=== PATIENT | female | born 1950 | race Caucasian/White ===

== ENCOUNTER 2021-11-10 17:31 | Inpatient (IN) | payer MEDICARE, OTHER ==
--- OUTSIDE RECORDS SUMMARY | 2021-11-10 17:33 | XMS REPORT | Continuity of Care Document ---
:1950 Author Organization [facility] t Address [address] [place] [address] Care Team Providers Name Role Phone Kayla COSME Primary Care Physician Unavailable Elise WARREN, Hanh Attending Clinician Hanh HAYS Attending Clinician Unavailable ELISE B Admitting Clinician Unavailable Payers Payer Name Policy Type Policy Number Effective Date Expiration Date S ource Problems This patient has no known problems. Allergies, Adverse Reactions, Alerts Allergy Allergy Status Severity Reaction(s) Onset Inactive Treating Comm ents Source Name Type Date Date Clinician Erythrom Propensi Active Anaphylaxis U nivers ycin ty to 3-02 ity of adverse 00:00: [place] reaction 00 Medical s Branch Sulfa Propensi Active Anaphylaxis Uni vers (Sulfona ty to 3-02 ity of mide adverse 00:00: [place] Antibiot reaction 00 Medica l ics) s Branch Tetanus Propensi Active Anaphylaxis Un harriet And ty to 3-02 ity of Diphther adverse 00:00: [place] . Tox reaction 00 Medical (Pf) s Branch SULFA Drug Active Anaphylaxis 0 Unive rs (SULFONA Class 3-02 ity of MIDE 00:00: [place] ANTIBIOT 00 Medical ICS) Branch ERYTHROM DRUG Active Anaphylaxis Uni vers YCIN 3-02 ity of 00:00: [place] 00 Medical Branch TETANUS DRUG Active Anaphylaxis 2021-0 Univ ers AND 3-02 ity of DIPHTHER 00:00: [place] . TOX 00 Medical (PF) Branch NO KNOWN Drug Active Univers ALLERGIE Class ity of S [facility] Social History Social Habit Start Date Stop Date Quantity Comments Source Exposure to Not sure [facility] SARS-CoV-2 (event) Medica l Branch Sex Ass[birth year] [facility] 00:00:00 00:00:00 Medical Branch Smoking Status Start Date Stop Date Source Unknown if ever smoked [facility] Medications This patient has no known medications. Vital Signs Vital Name Observation Time Observation Value Comments Source Systolic blood 2021-08-17 21:34:00 149 mm[facility]Hg[facility] Diastolic [facility] 2021-08-17 21:34:00 96 mm[Hg[facility] 2021-08-17 21:34:00 114 /min [facility] Respiratory rate 2021-08-17 21:34:00 18 /min [facility] Oxygen saturation in 2021-08-17 21:34:00 97 /min [facility] Arterial blood by [facility] Pulse oximetry Branch Body temperature 2021-08-17 21:29:00 36.56 Cherie [facility] Body height 2021-08-17 21:29:00 172.7 cm [facility] Body weight 2021-08-17 21:29:00 72.576 kg [facility] BMI 2021-08-17 21:29:00 24.33 kg/m2 [facility] Procedures Procedure Date / Time Performed Performing Clinician Pam e XR FOREARM 2 VW LEFT 2021-08-17 22:22:00 Rubio Hays [facility] XR HAND 3+ VW LEFT 2021-08-17 22:22:00 Rubio Hays [facility] XR WRIST 3+ VW LEFT 2021-08-17 22:22:00 Rubio [facility] CONSENT/REFUSAL FOR 2021-08-17 21:08:23 Doctor Unassigned, No Un [facility] DIAGNOSIS AND Name [facility] Branch TREATMENT Encounters Start End Encounter Admission Attending Care Care Encounter Source Date/Time Date/Time Type Type Clinicians Facility Department ID 2021-08-17 2021-08-17 Emergency NADJA [place] [id number] [facility] 15:31:00 17:14:00 Rubio MURPHY [id number] i ty of ANGELITA [id number] [facility] [id number] [place] [id number] Branch 2021-08-17 2021-08-17 Emergency X ELISE [facility] ERT [id number] [facility] 15:31:00 17:14:00 RUBIO ng of [facility] Results This patient has no known results.
[2021-11-10 17:54] LABS: Absolute Lymphocytes (CBC) 1.5 K/uL (0.7-4.9); Hematocrit 45.2 % (36.0-45.0); Lymphocytes % 10.1 % (15.3-44.8); MPV 8.2 fL (7.6-11.3); RBC Red Blood Cell Count 4.26 M/uL (3.86-4.86)
[2021-11-10 18:14] LABS: Troponin High Sensitivity 14.1 pg/mL (<58.9)
[2021-11-10 18:19] LABS: Potassium 2.8 mmol/L (3.5-5.1)
[2021-11-10] MEDS ORDERED: NA CHLORIDE 0.9% 500 ML ONE (18:20)
[2021-11-10] MEDS ORDERED: NA CHLORIDE 0.9% 50 ML ONE (18:20)
--- NOTE | 2021-11-10 18:22 | RAD REPORT ---
EXAM DESCRIPTION: [facility]anner Single View11/10/2021 5:48 pm CLINICAL HISTORY: Alteration of consciousness COMPARISON: 2021 FINDINGS: The lungs appear clear of acute infiltrate. The heart is normal size IMPRESSION: No acute abnormalities displayed
--- NOTE | 2021-11-10 18:36 | RAD REPORT ---
EXAM DESCRIPTION: CT - Head Brain Wo Cont - 11/10/2021 6:29 pm CLINICAL HISTORY: Alteration of consciousness/confusion COMPARISON: None. TECHNIQUE: Computed axial tomography of the head was obtained. IV contrast was not requested. All CT scans are performed using dose optimization technique as appropriate and may include automated exposure control or mA/KV adjustment according to patient size. FINDINGS: An intracranial bleed is not seen . The ventricles are normal in caliber. No significant hypodense areas within the brain visualized Prominent cerebellar vermis and cerebral atrophy No extra-axial fluid collection is noted. Fluid within the sinuses/ mastoids is not seen. IMPRESSION: No acute intracranial abnormality is seen. If patient's symptoms persist MRI of the bra in would be recommended.
[2021-11-10] MEDS ORDERED: KCL 20 MEQ/100 mL IVPB 100 ML IV ONE ×2 (18:38→19:53)
[2021-11-10 19:16] LABS: Urine Blood Trace-intact (Negative); Urine Glucose Trace (Negative); Urine Protein 1+ (Negative)
--- NOTE | 2021-11-10 19:22 | ER ---
Nurse's Notes [facility] Name: Kassidy Bella Age: 71 yrs Sex: Female : 1950 Arrival Date: 11/10/2021 Time: 17:32 Bed 27 Private MD: Diagnosis: Altered mental status, unspecified;Hypokalemia;Hyponatremia;Dehydration;Hypotension, unspecified;UTI/ Urinary tract infection, site not specified Presentation: 11/10 17:35 Chief complaint: Patient states: she has low blood pressure today. patient is unable to ap3 tell us exactly what is wrong and how she is currently feeling. Coronavirus screen: At this time, the client does not indicate any symptoms associated with coronavirus-19. Ebola Screen: No symptoms or risks identified at this time. Initial Sepsis Screen: Does the patient meet any 2 criteria? No. Patient's initial sepsis screen is negative. Does the patient have a suspected source of infection? No. Patient's initial sepsis screen is negative. Risk Assessment: Do you want to hurt yourself or someone else? Patient reports no desire to harm self or others. Onset of symptoms was November 10, 2021. 17:35 Method Of Arrival: EMS: [facility] ap3 17:35 Acuity: RIGOBERTO 3 ap3 Historical: - Allergies: 17:34 Sulfa (Sulfonamide Antibiotics); ap3 - Home Meds: 17:34 Lisinopril Oral [Active]; ap3 - PMHx: 17:34 Hypertensive disorder; ap3 - Immunization history:: Client reports having NOT received the Covid vaccine. - Social history:: Smoking status: Patient reports the use of cigarette tobacco products, smokes one-half pack cigarettes per day. Screenin:46 Abuse screen: Denies threats or abuse. Nutritional screening: No deficits noted. ap3 Tuberculosis screening: No symptoms or risk factors identified. Fall Risk Fall in past 12 months (25 points). Secondary diagnosis (15 points) impaired mobility, IV access (20 points). Ambulatory Aid- None/Bed Rest/Nurse Assist (0 pts). Gait- Weak (10 pts.). Mental Status- Oriented to own ability (0 pts). Total Osborn Fall Scale indicates High Risk Score (45 or more points). Fall prevention measures have been instituted. Side Rails Up X 2 Placed Close to Nursing Station Frequent Obs/Assessments Occuring Family Present and informed to notify staff if the need to leave the bedside As available patient and family educated on Fall Prevention Program and Strategies. Assessment: 17:46 General: Appears in no apparent distress. Behavior is calm, cooperative. Pain: Denies ap3 pain. Neuro: Level of Consciousness is awake, alert, Oriented to person, place, time, patient unable to articulate how she is feeling. Cardiovascular: Patient's skin is warm and dry. Respiratory: Airway is patent Respiratory effort is even, unlabored. 19:37 Reassessment: I recv'd report on the pt in room #16. She is now, an ER Hold. Her valeria daughter is at bedside. She is resting comfortably with IV infusing. One lab needs drawn, as it was ordered later. It will be sent jud. The pt is calm and cooperative. 20:23 Reassessment: Report given to the ER nurse that is taking all the ER Holds. The pt is valeria in NAD. Vital Signs: 17:35 BP 142 / 98; Pulse 101; Resp 18; Temp 97.8(O); Pulse Ox 98% on R/A; Weight 61.23 kg; ap3 Height 6 ft. (182.88 cm); 18:02 BP 94 / 65; Pulse 109; ap3 19:00 BP 94 / 71; Pulse 101; Pulse Ox 98% on R/A; ap3 19:36 BP 118 / 86; Pulse 92; Resp 20; Pulse Ox 95% on R/A; Pain 0/10; valeria 17:35 Body Mass Index 18.31 (61.23 kg, 182.88 cm) ap3 ED Course: 17:32 Patient arrived in ED. ap3 17:33 David Dawn MD is Attending Physician. jessica 17:33 Inserted saline lock: 20 gauge in left antecubital area, using aseptic technique. Blood ap3 collected. 17:45 Triage completed. ap3 17:47 Arm band placed on left wrist. ap3 17:47 Patient has correct armband on for positive identification. Bed in low position. Call ap3 light in reach. Side rails up X2. Adult w/ patient. laboratory monitor on. Pulse ox on. NIBP on. Door closed. Noise minimized. 17:49 Violet Riojas, CLIVE is Primary Nurse. ap3 17:49 AMMONIA Sent. ap3 17:49 Lactate Sent. ap3 17:50 XRAY Chest (1 view) In Process Unspecified. EDMS 18:06 Kalen Oliva PA is PHCP. jr8 18:30 CT Head Brain wo Cont In Process Unspecified. EDMS 18:54 ETOH Level Sent. ap3 19:00 EKG done, by ED staff, reviewed by Kalen NAVARRETE. ap3 19:01 Urine collected: Umaña catheter specimen, clear. Umaña cath inserted, using sterile [facility] technique, 18 Fr., by hi, balloon inflated, urine specimen collected. 19:02 Osmolality, Serum Sent. 5 19:02 Urine Sodium Random Sent. 5 19:02 Urine Osmolality Sent. 5 19:02 Urine Potassium Random Sent. 5 19:02 Urine Microscopic Only Sent. 5 19:03 Blood Culture Adult (2) Sent. 5 19:21 Albino Lebron MD is Hospitalizing Provider. jr8 19:39 No provider procedures requiring assistance completed. valeria 19:39 Patient admitted, IV remains in place. valeria Administered Medications: 18:38 Drug: Potassium Chloride 20 mEq Route: IV; Rate: calculated rate; Site: left ap3 antecubital; 18:39 Drug: NS 0.9% 500 ml Route: IV; Rate: bolus; Site: left antecubital; ap3 20:13 Drug: Potassium Chloride 40 mEq Route: PO; valeria 20:28 Drug: Potassium Chloride 20 mEq Route: IV; Rate: calculated rate; Site: left ll3 antecubital; Medication: 17:47 VIS not applicable for this client. ap3 Outcome: 19:22 Decision to Hospitalize by Provider. jr8 19:39 Condition: stable valeria 19:39 Admitted to ER Hold. [facility] for further documentation. valeria 11/11 13:10 Patient left the ED. ap3 Signatures: Dispatcher [employer] EDMS David Dawn MD MD cha Roszak, Josh, PA PA jr8 Rosita Duron [facility] Violet Riojas RN RN ap3 Tayla Stein RN RN shawn3 Mandie Manning RN RN valeria Corrections: (The following items were deleted from the chart) 11/10 17:36 17:34 Allergies: No Known Allergies; ap3 ap3 17:50 17:47 BLOOD CULTURE*+BA.LAB.SHAREE drawn and sent. ap3 EDMS 18:37 18:09 COVID 19 CPL+MR.LAB.SHAREE drawn and sent. ap3 EDMS
--- NOTE | 2021-11-10 19:23 | EDPHYS ---
Physician Documentation [facility] Name: Kassidy Bella Age: 71 yrs Sex: Female : 1950 Arrival Date: 11/10/2021 Time: 17:32 Bed 27 Private MD: ED Physician David Dawn HPI: 11/10 19:17 This 71 yrs old Female presents to ER via EMS with complaints of AMS, Blood Pressure jr8 Problem. 19:17 The patient presents with confusion. Onset: The symptoms/episode began/occurred jr8 acutely, today. Possible causes: unknown. Associated signs and symptoms: The patient has no apparent associated signs or symptoms, Pertinent positives:. Current symptoms: In the emergency department the patient's symptoms have improved, mildly. Patient's baseline: Neuro: alert and fully oriented, Motor: no deficits, Ambulation: walks without assistance, Speech: normal. The patient has not experienced similar symptoms in the past. It is unknown whether or not the patient has recently seen a physician. Family reports altered mentation. Stated that there was feces and urine all over the house. EMS called and found that patient was hypotensive . Historical: - Allergies: 17:34 Sulfa (Sulfonamide Antibiotics); ap3 - Home Meds: 17:34 Lisinopril Oral [Active]; ap3 - PMHx: 17:34 Hypertensive disorder; ap3 - Immunization history:: Client reports having NOT received the Covid vaccine. - Social history:: Smoking status: Patient reports the use of cigarette tobacco products, smokes one-half pack cigarettes per day. ROS: 19:17 ENT: Negative for injury, pain, and discharge, Neck: Negative for injury, pain, and jr8 swelling, Cardiovascular: Negative for chest pain, palpitations, and edema, Respiratory: Negative for shortness of breath, cough, wheezing, and pleuritic chest pain, Abdomen/GI: Negative for abdominal pain, nausea, vomiting, diarrhea, and constipation, Back: Negative for injury and pain, MS/Extremity: Negative for injury and deformity, Skin: Negative for injury, rash, and discoloration. 19:17 Neuro: Positive for altered mental status. 19:17 Constitutional: Negative for fever, chills, and weight loss. jr8 Exam: 19:17 Constitutional: This is a well developed, well nourished patient who is awake, alert, jr8 and in no acute distress. Eyes: Pupils equal round and reactive to light, extra-ocular motions intact. Lids and lashes normal. Conjunctiva and sclera are non-icteric and not injected. Cornea within normal limits. Periorbital areas with no swelling, redness, or edema. ENT: Nares patent. No nasal discharge, no septal abnormalities noted. Tympanic membranes are normal and external auditory canals are clear. Oropharynx with no redness, swelling, or masses, exudates, or evidence of obstruction, uvula midline. Mucous membranes moist. Neck: Trachea midline, no thyromegaly or masses palpated, and no cervical lymphadenopathy. Supple, full range of motion without nuchal rigidity, or vertebral point tenderness. No Meningismus. Cardiovascular: Regular rate and rhythm with a normal S1 and S2. No gallops, murmurs, or rubs. Normal PMI, no JVD. No pulse deficits. Respiratory: Lungs have equal breath sounds bilaterally, clear to auscultation and percussion. No rales, rhonchi or wheezes noted. No increased work of breathing, no retractions or nasal flaring. Abdomen/GI: Soft, non-tender, with normal bowel sounds. No distension or tympany. No guarding or rebound. No evidence of tenderness throughout. Back: No spinal tenderness. No costovertebral tenderness. Full range of motion. Skin: Warm, dry with normal turgor. Normal color with no rashes, no lesions, and no evidence of cellulitis. MS/ Extremity: Pulses equal, no cyanosis. Neurovascular intact. Full, normal range of motion. Neuro: Awake and alert, GCS 15, oriented to person, place, time. Cranial nerves II-XII grossly intact. Motor strength 5/5 in all extremities. Sensory grossly intact. Slow to respond. No abnormal movements noted Vital Signs: 17:35 BP 142 / 98; Pulse 101; Resp 18; Temp 97.8(O); Pulse Ox 98% on R/A; Weight 61.23 kg; ap3 Height 6 ft. (182.88 cm); 18:02 BP 94 / 65; Pulse 109; ap3 19:00 BP 94 / 71; Pulse 101; Pulse Ox 98% on R/A; ap3 19:36 BP 118 / 86; Pulse 92; Resp 20; Pulse Ox 95% on R/A; Pain 0/10; valeria 17:35 Body Mass Index 18.31 (61.23 kg, 182.88 cm) ap3 MDM: 17:33 Patient medically screened. jessica 19:21 Data reviewed: vital signs, nurses notes, lab test result(s), EKG, radiologic studies, [facility] CT scan, plain films. Data interpreted: Pulse oximetry: on room air is 98 %. Interpretation: normal. Counseling: I had a detailed discussion with the patient and/or guardian regarding: the historical points, exam findings, and any diagnostic results supporting the discharge/admit diagnosis, lab results, radiology results, the need for further work-up and treatment in the hospital. 11/10 17:33 Order name: Basic Metabolic Panel; Complete Time: 18:20 [facility] 11/10 17:33 Order name: CBC with Diff; Complete Time: 18:07 [facility] 11/10 17:33 Order name: Troponin HS; Complete Time: 18:20 [facility] 11/10 17:33 Order name: Blood Culture Adult (2) [facility] 11/10 17:33 Order name: Lactate; Complete Time: 18:15 [facility] 11/10 17:33 Order name: AMMONIA; Complete Time: 18:15 [facility] 11/10 18:07 Order name: Urine Microscopic Only; Complete Time: 19:43 [facility] 11/10 18:21 Order name: ETOH Level; Complete Time: 19:25 [facility] 11/10 18:21 Order name: Urine Potassium Random; Complete Time: 20:39 [facility] 11/10 18:21 Order name: Urine Osmolality; Complete Time: 19:52 [facility] 11/10 18:21 Order name: Urine Sodium Random; Complete Time: 20:38 [facility] 11/10 18:21 Order name: Osmolality, Serum; Complete Time: 20:42 [facility] 11/10 18:24 Order name: Magnesium; Complete Time: 19:41 [facility] 11/10 18:37 Order name: SARS-COV-2 RT PCR; Complete Time: 19:29 [facility] 11/10 19:16 Order name: Urine Dipstick-Ancillary; Complete Time: 19:20 [facility] 11/10 19:36 Order name: Urinalysis [facility] 11/10 19:36 Order name: Basic Metabolic Panel [facility] 11/10 19:36 Order name: Basic Metabolic Panel; Complete Time: 02:22 [facility] 11/10 19:36 Order name: Basic Metabolic Panel [facility] 11/10 19:36 Order name: Basic Metabolic Panel [facility] 11/10 19:36 Order name: CBC with Automated Diff EDAK 11/10 19:36 Order name: CBC with Automated Diff [facility] 11/10 19:36 Order name: CBC with Automated Diff [facility] 11/10 19:36 Order name: CBC with Automated Diff MS 11/10 19:36 Order name: T4 Free [facility] 11/10 19:36 Order name: T4 Free [facility] 11/10 19:36 Order name: Thyroid Stimulating Hormone [facility] 11/10 19:36 Order name: Thyroid Stimulating Hormone [facility] 11/10 19:45 Order name: Urine Culture [facility] 11/10 17:33 Order name: XRAY Chest (1 view); Complete Time: 18:52 3 11/10 17:33 Order name: EKG; Complete Time: 17:34 3 11/10 17:33 Order name: Cardiac monitoring; Complete Time: 18:43 3 11/10 17:33 Order name: EKG - Nurse/Tech; Complete Time: 18:59 3 11/10 17:33 Order name: IV Saline Lock; Complete Time: 17:47 3 11/10 17:33 Order name: Labs collected and sent; Complete Time: 17:47 3 11/10 17:33 Order name: O2 Per Protocol; Complete Time: 17:47 3 11/10 17:33 Order name: O2 Sat Monitoring; Complete Time: 17:47 3 11/10 18:07 Order name: Urine Dipstick-Ancillary (obtain specimen); Complete Time: 19:02 [facility] 11/10 18:09 Order name: CT Head Brain wo Cont; Complete Time: 18:52 [facility] 11/10 18:24 Order name: Umaña; Complete Time: 18:59 [facility] 11/10 19:36 Order name: CONS Physician Consult [facility] 11/10 19:36 Order name: Physical Therapy Consult [facility] 11/10 19:36 Order name: Heart Healthy [facility] 11/11 06:12 Order name: T4 Free [facility] 11/11 06:12 Order name: Thyroid Stimulating Hormone [facility] 11/11 09:03 Order name: Liver (Hepatic) Function [facility] 11/11 09:03 Order name: Prealbumin EDMS 11/11 09:59 Order name: CBC Smear Scan EDMS Administered Medications: 18:38 Drug: Potassium Chloride 20 mEq Route: IV; Rate: calculated rate; Site: left ap3 antecubital; 18:39 Drug: NS 0.9% 500 ml Route: IV; Rate: bolus; Site: left antecubital; ap3 20:13 Drug: Potassium Chloride 40 mEq Route: PO; valeria 20:28 Drug: Potassium Chloride 20 mEq Route: IV; Rate: calculated rate; Site: left ll3 antecubital; Disposition Summary: 11/10/21 19:22 Hospitalization Ordered Hospitalization Status: Inpatient Admission jr8 Provider: Albino Lebron Condition: Fair jr8 Problem: new jr8 Symptoms: are unchanged jr8 Bed/Room Type: Standard [facility] Location: Telemetry/MedSurg (Inpatient)(11/11/21 11:52) ja Room Assignment: [facility](11/11/21 11:52) ja Diagnosis - Altered mental status, unspecified jr8 - Hypokalemia jr8 - Hyponatremia jr8 - Dehydration jr8 - Hypotension, unspecified jr8 - UTI/ Urinary tract infection, site not specified jr8 Forms: - Medication Reconciliation Form jr8 - SBAR form jr8 Addendum: 12/02/2021 11:21 Co-signature as Attending Physician, David Dawn MD I agree with the assessment and c harp plan of care. Signatures: Dispatcher [employer] [facility] David Dawn MD MD cha Roszak, Josh, PA PA jr8 John Churchill, COPIER TECHNICIAN-C COPIER TECHNICIAN-Cla1 Mela Seth, CLIVE RN cg Capo Terry RN RN ja1 Violet Riojas RN RN ap3 Tayla Stein RN RN ll3 Mandie Manning RN RN valeria Corrections: (The following items were deleted from the chart) 11/10 17:36 17:34 Allergies: No Known Allergies; ap3 ap3 17:50 17:34 BLOOD CULTURE*+BA.LAB.BRZ ordered. EDAK EDMS 18:37 17:37 COVID 19 CPL+MR.LAB.BRZ ordered. EDAK EDMS 19:25 19:22 Telemetry/MedSurg (Inpatient) jr8 19:25 19:22 jr8 cg 11/11 11:52 11/10 19:25 [facility] ja1 11/11 10:11/10 19: [facility] ja1
[2021-11-10] MEDS ORDERED: ONDANSETRON 4 MG/2 ML VIAL IV PRN (19:31)
[2021-11-10 19:41] LABS: Urine Bacteria 20-50 /HPF (<20); Urine Mucus 2+ /HPF (NONE SEEN); Urine RBC <5 /HPF (NONE SEEN)
[2021-11-10 19:42] LABS: Urine Amorphous Sediment 1+ /HPF (NONE SEEN)
--- NOTE | 2021-11-10 19:43 | P.HP ---
Certification for Inpatient Patient admitted to: Inpatient With expected LOS: >2 Midnights Patient will require the following post-hospital care: None Practitioner: I am a practitioner with admitting privileges, knowledge of patient current condition, hospital course, and medical plan of care. Services: Services provided to patient in accordance with Admission requirements found in Title 42 Section 412.3 of the Code of Federal Regulations Patient History Date of Service: 11/10/21 Primary Care Provider: Patience Dorado Reason for admission: Hyponatremia, hypokalemia History of Present Illness: 71-year-old female with history of hypertension presents the emergency department for weakness, frequent falls. Family member bedside reports patient has been having deconditioning at home over the course of the last 3 months or so having difficulty caring for herself/bathing they have been preparing and gathering her food for her she also has been drinking daily up to a bottle of wine per day. Patient was evaluated in the emergency department found to be hyponatremic, hypokalemic patient does admit to history of hyponatremia likely acute on chronic patient was given 500 cc NS bolus in the ER I discussed the case with nephrology who recommends replacement of potassium and close monitoring of sodium level throughout the evening. Will admit for hyponatremia, hypokalemia, deconditioning. - Past Medical/Surgical History -: Hypertension -: Alcohol abuse -: Left wrist surgery Psychosocial/ Personal History: Patient lives at home, alone has family that checks on her periodically - Family History Family History: Reviewed- Non-Contributory - Social History Smoking Status: Current every day smoker Counseled patient to stop smoking for: less than 10 minutes Smoking therapy provided: No (Patient declined) Alcohol use: Yes CD- Drugs: No Caffeine use: Yes Place of Residence: Home Review of Systems 10-point ROS is otherwise unremarkable General: Weakness, Malaise Neurological: Confusion Physical Examination - Physical Exam General: Alert, In no apparent distress, Oriented x2 (Oriented to person and place but not time) HEENT: Atraumatic, PERRLA, Other (Mucous membranes are dry), EOMI, Sclerae nonicteric Neck: Supple, 2+ carotid pulse no bruit, No LAD, Without JVD or thyroid abnormality Respiratory: Clear to auscultation bilaterally, Normal air movement Cardiovascular: Regular rate/rhythm, Normal S1 S2 Capillary refill: <2 Seconds Gastrointestinal: Normal bowel sounds, No tenderness Musculoskeletal: No tenderness Integumentary: No rashes Neurological: Normal speech, Normal tone, Normal affect - Studies Laboratory Data (last 24 hrs) 11/10/21 17:37: Magnesium 1.9 11/10/21 17:37: WBC 14.6 H, Hgb 15.7 H, Hct 45.2 H, Plt Count 411 H 11/10/21 17:37: Sodium 123 L, Potassium 2.8 L*, BUN 17, Creatinine 1.24, Glucose 102 Assessment and Plan - Plan Assessment: Acute on chronic hyponatremia Hypokalemia Medical deconditioning Hypertension currently with hypotension Alcohol abuse Plan: Acute on chronic hyponatremia: Patient given 500 cc NS bolus in the ER case that was discussed with nephrology recommends replacement of potassium as this will also increase the sodium level potassium replacement currently ordered we will recheck sodium around midnight and monitor sodium level closely. We will allow for oral intake. Patient has been told she had low sodium in the past does admit to poor oral intake as well as chronic alcohol use no known use of diuretics. Does not appear to be overloaded. Hypokalemia: Replaced in ER, continue with protocol. Medical deconditioning: We will patient evaluated by physical therapy, family also reports that patient having difficulty caring for herself at home patient confused at this time will need to have discussion about dispo planning when patient is more coherent. Will likely benefit with home health/physical therapy or possible SNF. Hypertension currently with hypotension: Hold lisinopril, small boluses as needed, potentially midodrine if necessary. Alcohol abuse: Patient confused this time we will need to discuss alcohol cessation, EtOH level negative at this time. DVT PPX: Lovenox Code status: Full Discharge Plan: Home Plan to discharge in: 72 Hours - Advance Directives Does patient have a Living Will: No Does patient have a Durable POA for Healthcare: No - Code Status/Comfort Care Code Status Assessed: Yes (Full code) Critical Care: No Time Spent Managing Pts Care (In Minutes): 55
[2021-11-10] MEDS ORDERED: POTASSIUM CL SA 10 MEQ TAB PO ONE (19:53)
[2021-11-10] MEDS ORDERED: NA CHLORIDE 0.9% 1,000 ML ONE (19:54)
[2021-11-10 20:32] LABS: UR SODIUM < 15 mmol/L (27-287)
[2021-11-11 02:12] LABS: Potassium 3.2 mmol/L (3.5-5.1)
[2021-11-11] MEDS ORDERED: POTASSIUM 25 MEQ EFFERV TAB PO ONE (02:59)
[2021-11-11] MEDS ORDERED: POTASSIUM 25 MEQ EFFERV TAB ONE (03:12)
[2021-11-11] MEDS ORDERED: ONDANSETRON 4 MG/2 ML VIAL ONE (03:37)
[2021-11-11 05:23] LABS: RBC Red Blood Cell Count 3.74 M/uL (3.86-4.86)
[2021-11-11 05:24] LABS: Absolute Lymphocytes (CBC) 2.4 K/uL (0.7-4.9); Lymphocytes % 29.1 % (15.3-44.8); MPV 8.5 fL (7.6-11.3)
[2021-11-11 06:07] LABS: Potassium 3.5 mmol/L (3.5-5.1); Thyroid Stimulating Hormone 1.67 uIU/mL (0.360-3.740)
[2021-11-11 06:16] VITALS: BMI 24.4
--- NOTE | 2021-11-11 07:23 | P.PN ---
Date of Service: 11/11/21 Subjective: slight improvement; slight confusion denies UTI symptoms ROS: 10 point ROS as noted above, otherwise negative Physical exam GEN: Alert, orientedx2, NAD HEENT: Normal conjunctiva, sclera anicteric CV: Regular rate and rhythm, no edema Pulm: Nonlabored respirations on room air ABD: Soft, nontender, nondistended Neuro: Normal speech, flat affect Problem List Acute on chronic hyponatremia Hypokalemia Medical deconditioning Hypertension currently with hypotension Alcohol abuse s/p 500cc bolus in ED and K replacement. Nephrology consulted PO as tolerated replace electrolytes patient is deconditioned, PT consulted monitor BP monitor alcohol withdrawal VTE: lovenox Code: full Dispo: home vs snf, pending improvement / PT consulted Time Spent Managing Pts Care (In Minutes): 35
[2021-11-11] MEDS ORDERED: ENOXAPARIN 40 MG/0.4 ML SQ ONE (07:59)
[2021-11-11] MEDS: ENOXAPARIN 40 MG/0.4 ML SQ SCH (08:43)
[2021-11-11 08:53] LABS: Potassium 3.6 mmol/L (3.5-5.1)
[2021-11-11 09:03] LABS: Albumin 2.6 g/dL (3.4-5.0); Bilirubin Direct 0.3 mg/dL (0-0.2); Bilirubin Total 0.8 mg/dL (0.2-1.0); Prealbumin 10.9 mg/dL (20-40); Protein, Total 5.5 g/dL (6.4-8.2)
[2021-11-11 09:59] LABS: Blood Morphology Comment NOTED (NOT SEEN); Macrocytosis 1+; White Blood Cell Scan OK (OK)
[2021-11-11 10:02] LABS: Platelet Estimate ADEQ
--- NOTE | 2021-11-11 13:34 | P.CNS ---
Date of Consult: 11/11/21 Requesting Physician: Albino Lebron Primary Care Provider: Patience Dorado Chief Complaint: Hyponatremia, hypokalemia History of Present Illness: 71F w/ PMHx of Htn & ETOH abuse, who p/w progressive generalized weakness for the past 3 mos & frequent falls. Has been continuing to drink etoh heavily at home. Noted to be hypoNa & hypoK on admission. BNP elevated. Clinically not in CHF but appeared dry. Received. IVF. Allergies Sulfa (Sulfonamide Antibiotics) Allergy (Verified 11/10/21 22:55) Hives/Rash Home Medications: Lisinopril [Zestril] 50 mg PO DAILY 11/11/21 - Past Medical/Surgical History -: Hypertension -: Alcohol abuse -: Left wrist surgery Psychosocial/ Personal History: Patient lives at home, alone has family that checks on her periodically - Social History Smoking Status: Current every day smoker Alcohol use: Yes CD- Drugs: No Caffeine use: Yes Place of Residence: Home Review of Systems General: Weakness, Other (falls) Eyes: Unremarkable ENT: Unremarkable Respiratory: Unremarkable Cardiovascular: Unremarkable Gastrointestinal: Unremarkable Genitourinary: Unremarkable Integumentary: Unremarkable Neurological: Unremarkable Lymphatics: Unremarkable Physical Examination Temp Pulse Resp BP Pulse Ox 98.7 F 79 16 133/77 96 11/11/21 08:00 11/11/21 12:00 11/11/21 12:00 11/11/21 12:00 11/11/21 12:00 General: Other (frail looking) HEENT: Atraumatic, Normocephalic Neck: Supple, JVD not distended Respiratory: Clear to auscultation bilaterally Cardiovascular: No rubs, No murmurs Gastrointestinal: Soft and benign, No guarding Musculoskeletal: No clubbing Integumentary: No warmth Neurological: Normal speech, Normal tone Lymphatics: No axilla or inguinal lymphadenopathy Urinary: Other (no bladder distention) External genitalia: Deferred Rectal: Deferred Laboratory Data (last 24 hrs) 11/10/21 17:37: Magnesium 1.9 11/10/21 17:37: WBC 14.6 H, Hgb 15.7 H, Hct 45.2 H, Plt Count 411 H 11/10/21 17:37: Sodium 123 L, Potassium 2.8 L*, BUN 17, Creatinine 1.24, Glucose 102 Conclusions/Impression: # Hyponatremia 2/2 prerenal state + low solute intake Serum Na 123 on adm, today at 127 Urine chem showed both prerenal state + secondary hyperaldo state BNP somewhat elevated Resume IVF via NS gtt 75 cc/hr Recheck serum Na & urine chem tomorrow AM Advised on etoh cessation Advised on adeq po solid food intake tid # Elevated serum bicarb Likely 2/2 prerenal state IVF as above # Hypokalemia Monitor/replete prn # Htn Not on anti-Htn med Monitor BP # Debility, multiple falls PT/OT
[2021-11-11] MEDS: NA CHLORIDE 0.9% 1,000 ML ONE ×2 (16:06→16:15)
[2021-11-11] MEDS: NA CHLORIDE 0.9% 1,000 ML IV SCH (16:45)
--- NOTE | 2021-11-11 17:58 | EKG ---
Test Date: 2021-11-10 Test Time: 18:41:16 [employer] Hel[employer] Hand: ALP MEASUREMENT RESULTS: Intervals: Rate: 105 LA: 138 QRSD: 86 QT: 374 QTc: 494 [place]: P: 70 LA: 138 QRS: 58 T: 61 INTERPRETIVE STATEMENTS: Sinus tachycardia Otherwise normal ECG Compared to ECG 08/23/2021 11:39:48 No significant changes Electronically Signed On 11-11-21 17:57:21 CDT by Cole Cotter
[2021-11-12 04:32] LABS: Absolute Lymphocytes (CBC) 1.9 K/uL (0.7-4.9); Hematocrit 39.9 % (36.0-45.0); Lymphocytes % 28.7 % (15.3-44.8); MPV 7.6 fL (7.6-11.3); RBC Red Blood Cell Count 3.71 M/uL (3.86-4.86)
[2021-11-12 05:01] LABS: Potassium 3.3 mmol/L (3.5-5.1)
[2021-11-12] MEDS: NA CHLORIDE 0.9% 1,000 ML IV SCH ×2 (05:15→18:04)
--- NOTE | 2021-11-12 07:02 | P.PN ---
Date of Service: 11/12/21 Subjective: no acute events overnight patient didn't want to stand / walk with PT states body aches, feet ache; just wants "to lay in bed and recover for a few days" ROS: 10 point ROS as noted above, otherwise negative Physical exam GEN: Alert, orientedx2, NAD HEENT: Normal conjunctiva, sclera anicteric CV: Regular rate and rhythm, no edema Pulm: Nonlabored respirations on room air ABD: Soft, nontender, nondistended MSK: b/l feet without tenderness, no ecchymosis Neuro: Normal speech, flat affect, slow to answer Problem List Acute on chronic hyponatremia Hypokalemia Medical deconditioning Hypertension currently with hypotension chronic Alcohol dependence acute metabolic encephalopathy secondary to hyponatremia, chronic alcoholism hyponatremia - prerenal; secondary to chronic alcohol intake improving with gentle IVF Nephrology consulted PO as tolerated replace electrolytes patient is deconditioned, PT consulted; refusing to get out of bed monitor BP monitor alcohol withdrawal thiamine prominent cerebral/cerebellar atrophy - most likely secondary to chronic alcoholism VTE: lovenox Code: full Dispo: home vs snf, pending improvement / PT consulted updated ([phone]) Time Spent Managing Pts Care (In Minutes): 35
[2021-11-12] MEDS ORDERED: POTASSIUM 25 MEQ EFFERV TAB PO ONE (09:00)
--- NOTE | 2021-11-12 09:55 | P.PN ---
Subjective Date of Service: 11/12/21 Primary Care Provider: Patience Dorado Chief Complaint: Hyponatremia, hypokalemia Subjective: No new changes Physical Examination - Vital Signs Temperature: 97.3 F Blood Pressure: 176/91 Pulse: 81 Respirations: 20 Pulse Ox (%): 98 - Physical Exam General: In no apparent distress HEENT: Atraumatic, Normocephalic Neck: Supple Respiratory: Other (symmetric chest expansion) Cardiovascular: No rubs, No murmurs Gastrointestinal: Soft and benign, No guarding Musculoskeletal: No clubbing Integumentary: No warmth Neurological: Normal tone Urinary: Other (no bladder distention) External genitalia: Deferred Rectal: Deferred Assessment And Plan - Plan # Hyponatremia 2/2 prerenal state + low solute intake Serum Na 123 on adm, improved to 129 today Urine chem showed both prerenal state + secondary hyperaldo state BNP somewhat elevated Cont NS gtt 75 cc/hr Recheck serum Na tomorrow Advised on ETOH cessation Advised on adeq po solid food intake tid # Elevated serum bicarb Likely 2/2 prerenal state IVF as above # Hypokalemia Monitor/replete prn # Htn Not on anti-Htn med Monitor BP # Debility, multiple falls PT/OT
[2021-11-12] MEDS: ENOXAPARIN 40 MG/0.4 ML SQ SCH (10:19)
[2021-11-12 10:29] LABS: Potassium 3.1 mmol/L (3.5-5.1)
[2021-11-12] MEDS ORDERED: POTASSIUM CL SA 10 MEQ TAB PO ONE (18:00)
[2021-11-12] MEDS: THIAMINE HCL 100 MG TABLET PO SCH (18:05)
[2021-11-12] MEDS ORDERED: HYDRALAZINE HCL 20 MG/ML VIAL IV PRN (21:42)
[2021-11-13 06:08] LABS: Absolute Lymphocytes (CBC) 2.1 K/uL (0.7-4.9); Hematocrit 36.2 % (36.0-45.0); Lymphocytes % 26.4 % (15.3-44.8); MPV 8.1 fL (7.6-11.3); RBC Red Blood Cell Count 3.45 M/uL (3.86-4.86)
[2021-11-13 06:22] LABS: Albumin 2.5 g/dL (3.4-5.0); Bilirubin Total 0.8 mg/dL (0.2-1.0); Potassium 3.7 mmol/L (3.5-5.1); Protein, Total 5.2 g/dL (6.4-8.2)
--- NOTE | 2021-11-13 07:10 | P.PN ---
Date of Service: 11/13/21 Subjective: no acute events overnight still with generalized aches, improving reluctant to stand up given aches and prior falls, but states willing to work with PT ROS: 10 point ROS as noted above, otherwise negative Physical exam GEN: Alert, orientedx3, fatigued appearing, mild confusion HEENT: Normal conjunctiva, sclera anicteric CV: Regular rate and rhythm, no edema Pulm: Nonlabored respirations on room air ABD: Soft, nontender, nondistended MSK: b/l feet without tenderness, no ecchymosis Neuro: Normal speech, flat affect, slow to answer Problem List Acute on chronic hyponatremia Hypokalemia Medical deconditioning Hypertension currently with hypotension chronic Alcohol dependence acute metabolic encephalopathy secondary to hyponatremia, chronic alcoholism hyponatremia - prerenal; likely secondary to chronic alcohol intake / low PO intake improving with gentle IVF Nephrology consulted PO as tolerated replace electrolytes patient is deconditioned, PT consulted; initially, patient refused to get out of bed. After further discussion with the patient and her , she is agreeable to try with PT, voiced concerns of falling. and patient agreeable to SNF or rehab, dependent on PT eval and cost/ insurance coverage monitor alcohol withdrawal thiamine prominent cerebral/cerebellar atrophy - most likely secondary to chronic alcoholism VTE: lovenox Code: full Dispo: snf vs rehab, pending PT eval / pt progress updated during rounds ([phone]) Time Spent Managing Pts Care (In Minutes): 35
[2021-11-13] MEDS ORDERED: THIAMINE HCL 100 MG TABLET PO SCH (09:00)
[2021-11-13] MEDS ORDERED: POTASSIUM CL SA 10 MEQ TAB PO ONE ×2 (09:00→15:00)
[2021-11-13] MEDS: AMLODIPINE 5 MG TAB PO SCH (09:36)
[2021-11-13] MEDS: THIAMINE HCL 100 MG TABLET PO SCH ×2 (09:36→22:02)
[2021-11-13] MEDS: ENOXAPARIN 40 MG/0.4 ML SQ SCH (09:36)
[2021-11-13] MEDS: NA CHLORIDE 0.9% 1,000 ML IV SCH ×2 (09:37→21:25)
--- NOTE | 2021-11-13 22:41 | P.PN ---
Subjective Date of Service: 11/14/21 Primary Care Provider: Patience Dorado Chief Complaint: Hyponatremia, hypokalemia Subjective: No new changes Physical Examination - Vital Signs Temperature: 97.1 F Blood Pressure: 171/95 Pulse: 88 Respirations: 18 Pulse Ox (%): 98 - Physical Exam General: In no apparent distress HEENT: Atraumatic, Normocephalic Neck: Supple Respiratory: Other (symmetric chest expansion) Cardiovascular: No rubs, No murmurs Gastrointestinal: Soft and benign, No guarding Musculoskeletal: No clubbing Integumentary: No warmth Neurological: Normal tone Urinary: Other (no bladder distention) External genitalia: Deferred Rectal: Deferred - Studies Microbiology Data (last 24 hrs): 11/10/21 19:10 Clean Catch Urine [place] Count - Final <10,000 CFU/ML. 11/10/21 19:10 Clean Catch Urine - Final MIXED ZOYA. Assessment And Plan - Plan # Hyponatremia 2/2 prerenal state + low solute intake Serum Na 123 on adm, plateaued at 129 today Initial urine chem showed both prerenal state + secondary hyperaldo state Repeat urine chem on 11/13 showed high adh state BNP somewhat elevated Cont NS gtt 75 cc/hr Recheck serum Na tomorrow Advised on ETOH cessation Advised on adeq po solid food intake tid If next serum Na not improved further, dc NS gtt & give Tolvaptan Replete K prn to keep serum K at 4.0 or higher Avoid hypoMg # Elevated serum bicarb, likely 2/2 prerenal state Improved IVF as above # Hypokalemia Monitor/replete prn # Htn Not on anti-Htn med Monitor BP # Debility, multiple falls PT/OT
[2021-11-14 03:55] LABS: Hematocrit 37.9 % (36.0-45.0); MPV 7.3 fL (7.6-11.3); RBC Red Blood Cell Count 3.58 M/uL (3.86-4.86)
[2021-11-14 04:13] LABS: Albumin 2.6 g/dL (3.4-5.0); Phosphorus 2.1 mg/dL (2.5-4.9)
[2021-11-14 04:14] LABS: Potassium 3.5 mmol/L (3.5-5.1)
[2021-11-14 04:15] LABS: Magnesium 1.3 mg/dL (1.8-2.4)
[2021-11-14] MEDS ORDERED: Magnesium Sulfate 2gm IVPB 2 G/50 ML BAG IV ONE (04:19)
[2021-11-14] MEDS: NA CHLORIDE 0.9% 1,000 ML IV SCH (04:31)
[2021-11-14] MEDS ORDERED: MAGNESIUM SULFATE 1 gm IVPB 1 GM/100 ML BAG IV ONE (05:50)
[2021-11-14] MEDS ORDERED: POTASSIUM CL SA 10 MEQ TAB PO ONE ×2 (05:50→09:00)
--- NOTE | 2021-11-14 06:37 | P.PN ---
Date of Service: 11/14/21 Subjective: nausea from PO potassium feels fatigued, slight confusion. not wanting to get out of bed again ROS: 10 point ROS as noted above, otherwise negative Physical exam GEN: Alert, orientedx3, fatigued appearing, mild confusion HEENT: Normal conjunctiva, sclera anicteric CV: Regular rate and rhythm, no edema Pulm: Nonlabored respirations on room air ABD: Soft, nontender, nondistended Neuro: Normal speech, flat affect, slow to answer Problem List Acute on chronic hyponatremia Hypokalemia deconditioned Hypertension currently with hypotension chronic Alcohol dependence acute metabolic encephalopathy secondary to hyponatremia, chronic alcoholism hyponatremia - prerenal; likely secondary to chronic alcohol intake / low PO intake improving with gentle IVF, then plateaued Nephrology consulted, ordered tolvaptan PO as tolerated replace electrolytes patient is deconditioned, PT consulted; initially, patient refused to get out of bed. After further discussion with the patient and her , she is agreeable to try with PT, voiced concerns of falling. patient again not wanting to get out of bed and patient agreeable to SNF, dependent on PT eval and cost/ insurance coverage monitor alcohol withdrawal thiamine prominent cerebral/cerebellar atrophy - most likely secondary to chronic alcoholism VTE: lovenox Code: full Dispo: likely will need snf, pending PT eval / pt progress updated ([phone]) Time Spent Managing Pts Care (In Minutes): 35
[2021-11-14] MEDS: AMLODIPINE 5 MG TAB PO SCH (08:20)
[2021-11-14] MEDS: ENOXAPARIN 40 MG/0.4 ML SQ SCH (08:20)
[2021-11-14] MEDS: THIAMINE HCL 100 MG TABLET PO SCH ×2 (08:21→20:19)
[2021-11-14] MEDS ORDERED: TOLVAPTAN 30 MG PO SCH (12:45)
[2021-11-14] MEDS: ENSURE ENLIVE 237 ML CAN PO SCH (20:19)
--- NOTE | 2021-11-15 00:31 | PN ---
Date of Progress Note: 11/14/2021 Chief Complaint: Severe hypomagnesemia, hypokalemia, electrolyte abnormalities. Subjective: The patient was admitted to the hospital because of generalized weakness. The patient w as found to have hyponatremia secondary to prerenal state and low solute intake. The patient is star janet on treatment with normal saline infusion and sodium level has improved gradually. Review of Systems: Denies fever or chills. Objective: Lungs: Clear to auscultation bilaterally. Heart: S1, S2. Abdomen: Soft. Benign. Extremities: No edema. Impression And Plan: 1.Severe hyponatremia. Electrolyte abnormalities complicated by hypokalemia, low solute intake. Th e patient will continue normal saline and plan is to increase p.o. protein intake, which may facilita te treatment of hyponatremia. Initial urine chemistry show prerenal state and related to that second tessa hyperaldosteronemic response to prerenal state. The patient has hypokalemia. Plan is to increas e solute intake and keep potassium up to 5 if possible. Continue magnesium replacement. The patient has history of alcohol intake and she was recommended to alcohol cessation. 2.The patient tolerated normal saline infusion. Continue treatment with IV fluids normal saline. T he patient was found to have elevated serum bicarbonate likely secondary to prerenal state, hypokalem ia, and hyperaldosteronism related to prerenal state. 3.Malnutrition, follow up per Primary Team. Recommend increased p.o. protein intake. EB/MODL Voice ID: [id number] Report ID: [id number]
[2021-11-15 04:28] LABS: Albumin 2.6 g/dL (3.4-5.0); Magnesium 1.9 mg/dL (1.8-2.4); Phosphorus 2.8 mg/dL (2.5-4.9); Potassium 3.8 mmol/L (3.5-5.1)
--- NOTE | 2021-11-15 04:47 | P.PN ---
Subjective Date of Service: 11/15/21 Primary Care Provider: Patience Dorado Chief Complaint: Hyponatremia, hypokalemia Subjective: No new changes Physical Examination - Vital Signs Temperature: 98 F Blood Pressure: 132/80 Pulse: 103 Respirations: 19 Pulse Ox (%): 93 - Physical Exam General: In no apparent distress HEENT: Atraumatic, Normocephalic Neck: Supple, JVD not distended Respiratory: Other (Symmetric chest expansion) Cardiovascular: No rubs, No murmurs Gastrointestinal: Soft and benign, No rebound, No guarding Musculoskeletal: No clubbing Integumentary: No warmth Neurological: Normal speech, Normal tone Urinary: Other (No bladder distention) External genitalia: Deferred Rectal: Deferred Assessment And Plan - Plan # Hyponatremia 2/2 prerenal state + low solute intake Serum Na 123 on adm, improved to 133 today Initial urine chem showed both prerenal state + secondary hyperaldo state Repeat urine chem on 11/13 showed high adh state BNP somewhat elevated Cont NS gtt 75 cc/hr Recheck serum Na tomorrow Advised on ETOH cessation Advised on adeq po solid food intake tid If next serum Na not improved further, dc NS gtt & give Tolvaptan Replete K prn to keep serum K at 4.0 or higher Avoid hypoMg # Elevated serum bicarb, likely 2/2 prerenal state Improved IVF as above # Hypokalemia Monitor/replete prn # Htn Not on anti-Htn med Monitor BP # Debility, multiple falls PT/OT
[2021-11-15] MEDS: ENOXAPARIN 40 MG/0.4 ML SQ SCH (08:44)
[2021-11-15] MEDS: THIAMINE HCL 100 MG TABLET PO SCH ×2 (08:44→20:40)
[2021-11-15] MEDS: ENSURE ENLIVE 237 ML CAN PO SCH ×2 (08:45→20:40)
[2021-11-15] MEDS: AMLODIPINE 5 MG TAB PO SCH (08:45)
[2021-11-15] MEDS: POTASSIUM CL SA 10 MEQ TAB PO SCH (08:45)
--- NOTE | 2021-11-15 16:49 | P.PN ---
Subjective Date of Service: 11/15/21 Primary Care Provider: Patience Dorado Chief Complaint: Hyponatremia, hypokalemia Patient is alert and oriented. She was seen sitting straight in bed with no back support. She reports poor sleep last night. She is tolerating her meals. Physical Examination - Vital Signs Temperature: 97.4 F Blood Pressure: 153/77 Pulse: 93 Respirations: 16 Pulse Ox (%): 100 Assessment And Plan - Plan Physical exam GEN: Alert, orientedx3. HEENT: sclera anicteric CV: Regular rate and rhythm, no edema Pulm: Nonlabored respirations on room air, clear to auscultation bilaterally. ABD: Soft, nontender, nondistended Neuro: Normal speech, flat affect. Problem List Acute on chronic hyponatremia Hypokalemia deconditioned Hypertension currently with hypotension chronic Alcohol dependence acute metabolic encephalopathy secondary to hyponatremia, chronic alcoholism Plan: AMS resolved. hyponatremia - prerenal; likely secondary to chronic alcohol intake / decreased PO intake improving with gentle IVF, then plateaued Nephrology consulted, patient given tolvaptan. Sodium level is up to 133. PO as tolerated replace electrolytes as needed and patient agreeable to SNF. Social service assisting with arrangement monitor for alcohol withdrawal Continue thiamine. Continue PT.
[2021-11-15] MEDS ORDERED: chlordiazePOXIDE HCl 25 MG CAP PO ONE (20:45)
[2021-11-16] MEDS: ENSURE ENLIVE 237 ML CAN PO SCH ×2 (09:00→19:57)
[2021-11-16] MEDS: POTASSIUM CL SA 10 MEQ TAB PO SCH (09:01)
[2021-11-16] MEDS: ENOXAPARIN 40 MG/0.4 ML SQ SCH (09:01)
[2021-11-16] MEDS: AMLODIPINE 5 MG TAB PO SCH (09:01)
[2021-11-16] MEDS: THIAMINE HCL 100 MG TABLET PO SCH ×2 (09:01→19:57)
--- NOTE | 2021-11-16 12:26 | P.PN ---
Subjective Date of Service: 11/16/21 Primary Care Provider: Patience Dorado Chief Complaint: Hyponatremia, hypokalemia Subjective: No new changes Physical Examination - Vital Signs Temperature: 97.9 F Blood Pressure: 138/79 Pulse: 90 Respirations: 16 Pulse Ox (%): 100 - Physical Exam General: In no apparent distress HEENT: Atraumatic, Normocephalic Neck: Supple, JVD not distended Respiratory: Other (Symmetric chest expansion) Cardiovascular: No rubs, No murmurs Gastrointestinal: Soft and benign, No rebound Musculoskeletal: No clubbing Integumentary: No warmth Neurological: Normal speech, Normal tone Urinary: Other (No bladder distention) External genitalia: Deferred Rectal: Deferred - Studies Microbiology Data (last 24 hrs): 11/10/21 17:40 Blood - Blood Aerobic Blood Culture - Final No growth in 5 days. 11/10/21 17:40 Blood - Blood Anaerobic Blood Culture - Final No growth in 5 days. 11/10/21 17:35 Blood - Blood Aerobic Blood Culture - Final No growth in 5 days. 11/10/21 17:35 Blood - Blood Anaerobic Blood Culture - Final No growth in 5 days. Assessment And Plan - Plan # Hyponatremia 2/2 prerenal state + low solute intake Serum Na 123 on adm, improved to 132 Initial urine chem showed both prerenal state + secondary hyperaldo state Repeat urine chem on 11/13 showed high adh state BNP somewhat elevated Advised on ETOH cessation Advised on adeq po solid food intake tid Replete K prn to keep serum K at 4.0 or higher Avoid hypoMg Dc douglas # Elevated serum bicarb, likely 2/2 prerenal state Improved Monitor # Hypokalemia Monitor/replete prn # Htn Not on anti-Htn med Monitor BP # Debility, multiple falls PT/OT # [facility]
--- NOTE | 2021-11-16 17:16 | P.PN ---
Subjective Date of Service: 11/16/21 Primary Care Provider: Patience Dorado Chief Complaint: Hyponatremia, hypokalemia Patient is alert and oriented. She appears to be more active today. She has no new complain. Physical Examination - Vital Signs Temperature: 97.6 F Blood Pressure: 137/78 Pulse: 89 Respirations: 14 Pulse Ox (%): 99 - Studies Microbiology Data (last 24 hrs): 11/10/21 17:40 Blood - Blood Aerobic Blood Culture - Final No growth in 5 days. 11/10/21 17:40 Blood - Blood Anaerobic Blood Culture - Final No growth in 5 days. 11/10/21 17:35 Blood - Blood Aerobic Blood Culture - Final No growth in 5 days. 11/10/21 17:35 Blood - Blood Anaerobic Blood Culture - Final No growth in 5 days. Assessment And Plan - Plan Physical exam GEN: Alert, orientedx3. HEENT: sclera anicteric CV: Regular rate and rhythm, no edema Pulm: Nonlabored respirations on room air, clear to auscultation bilaterally. ABD: Soft, nontender, nondistended Neuro: Normal speech, flat affect. Problem List Acute on chronic hyponatremia Hypokalemia deconditioned Hypertension currently with hypotension chronic Alcohol dependence acute metabolic encephalopathy secondary to hyponatremia, chronic alcoholism Plan: AMS resolved. hyponatremia - prerenal; likely secondary to chronic alcohol intake / decreased PO intake improving with gentle IVF, then plateaued Patient given tolvaptan per nephrology recommendation. Diet as tolerated Monitor and replace electrolytes as needed Patient planned for skilled rehab Social service assisting with arrangement monitor for alcohol withdrawal Continue thiamine. Continue PT.
[2021-11-17 00:21] VITALS: O2SAT 98
[2021-11-17 06:23] LABS: Potassium 3.9 mmol/L (3.5-5.1)
[2021-11-17] MEDS: POTASSIUM CL SA 10 MEQ TAB PO SCH (09:17)
[2021-11-17] MEDS: ENOXAPARIN 40 MG/0.4 ML SQ SCH (09:17)
[2021-11-17] MEDS: THIAMINE HCL 100 MG TABLET PO SCH (09:17)
[2021-11-17] MEDS: AMLODIPINE 5 MG TAB PO SCH (09:17)
[2021-11-17] MEDS: ENSURE ENLIVE 237 ML CAN PO SCH (09:18)
--- NOTE | 2021-11-17 12:31 | P.PN ---
Subjective Date of Service: 11/17/21 Primary Care Provider: Patience Dorado Chief Complaint: Hyponatremia, hypokalemia Patient is alert and oriented. She has no new complain. Physical Examination - Vital Signs Temperature: 97.7 F Blood Pressure: 138/79 Pulse: 90 Respirations: 16 Pulse Ox (%): 98 Assessment And Plan - Plan Physical exam GEN: Alert, orientedx3. HEENT: sclera anicteric CV: Regular rate and rhythm, no edema Pulm: Nonlabored respirations on room air, clear to auscultation bilaterally. ABD: Soft, nontender, nondistended Neuro: Normal speech, flat affect. Problem List Acute on chronic hyponatremia Hypokalemia deconditioned Hypertension currently with hypotension chronic Alcohol dependence acute metabolic encephalopathy secondary to hyponatremia, chronic alcoholism Plan: AMS resolved. hyponatremia - prerenal; likely secondary to chronic alcohol intake / decreased PO intake improving with gentle IVF, then plateaued Patient given tolvaptan per nephrology recommendation. Considering sodium tablet if sodium level falls below 130. Diet as tolerated Monitor and replace electrolytes as needed Patient planned for skilled rehab. Awaiting insurance authorization. Social service assisting with arrangement monitor for alcohol withdrawal Continue thiamine. Continue PT.
--- NOTE | 2021-11-17 12:42 | P.PN ---
Subjective Date of Service: 11/17/21 Primary Care Provider: Patience Dorado Chief Complaint: Hyponatremia, hypokalemia Subjective: No new changes Physical Examination - Vital Signs Temperature: 97.7 F Blood Pressure: 138/79 Pulse: 90 Respirations: 16 Pulse Ox (%): 98 - Physical Exam General: In no apparent distress HEENT: Atraumatic, Normocephalic Neck: Supple, JVD not distended Respiratory: Clear to auscultation bilaterally Cardiovascular: No rubs, No murmurs Gastrointestinal: Soft and benign, No rebound Neurological: Normal speech, Normal tone Lymphatics: No axilla or inguinal lymphadenopathy Urinary: Other (No bladder distention) External genitalia: Deferred Rectal: Deferred Assessment And Plan - Plan # Hyponatremia 2/2 prerenal state + low solute intake Serum Na 123 on adm, improved to 130 Initial urine chem showed both prerenal state + secondary hyperaldo state Repeat urine chem on 11/13 showed high adh state BNP somewhat elevated Advised on ETOH cessation Advised on adeq po solid food intake tid Replete K prn to keep serum K at 4.0 or higher Avoid hypoMg Dc cole # Elevated serum bicarb, likely 2/2 prerenal state Improved Monitor # Hypokalemia Monitor/replete prn # Htn Not on anti-Htn med Monitor BP # Debility, multiple falls PT/OT # [facility]
--- NOTE | 2021-11-17 14:21 | P.DS ---
Admission Date: 11/10/21 Discharge Date: 11/17/21 Primary Care Provider: Patience Dorado Disposition: TRANSFER TO SNF - REHAB Discharge Condition: FAIR Reason for Admission: Hyponatremia, hypokalemia Consultations: Nephrology Brief History of Present Illness: 71-year-old female with history of hypertension and chronic alcoholism presented to the emergency department for weakness, frequent falls. Family member at the bedside reports patient has been progressively getting weak over the course of the last 3 months and having difficulty caring for herself/bathing. She also had been drinking daily up to a bottle of wine per day. Patient was evaluated in the emergency department found to be hyponatremic, hypokalemic Patient admitted to history of hyponatremia. She was diagnosed with acute on chronic hyponatremia and was given 500 cc NS bolus in the ER. Patient admitted for further management. Hospital Course: Diagnosis Acute on chronic hyponatremia Hypokalemia deconditioned Hypertension currently with hypotension chronic Alcohol dependence acute metabolic encephalopathy secondary to hyponatremia, chronic alcoholism Plan: Patient admitted to the medical floor and treated with IV normal saline. Her sodium level improved with the IV NS hyponatremia - prerenal; likely secondary to chronic alcohol intake / decreased PO intake She was seen by nephrology and patient given tolvaptan per nephrology recommendation. Her mental status improved and she tolerated oral feeding. She was generally weak and deconditioned. She was evaluated by PT and she was able to participate in therapy, currently needing assistance with ambulation. Patient accepted to SNF for skilled rehab. Sodium level has improved, vitals have been stable, AMS resolved. Patient is deemed clinically stable for discharge. She was placed on thiamine for chronic alcoholism. Vital Signs/Physical Exam: Temp Pulse Resp BP Pulse Ox 97.7 F 90 16 138/79 98 11/17/21 12:41 11/17/21 12:41 11/17/21 12:41 11/17/21 12:41 11/17/21 12:41 General: Alert, In no apparent distress, Oriented x3 HEENT: Mucous membr. moist/pink Neck: Supple, JVD not distended Respiratory: Clear to auscultation bilaterally Cardiovascular: No edema, Regular rate/rhythm, Normal S1 S2 Gastrointestinal: Normal bowel sounds, Soft and benign, Non-distended, No tenderness Musculoskeletal: No swelling Neurological: Normal strength at 5/5 x4 extr Laboratory Data at Discharge: WBC 8.9 K/uL (4.3-10.9) 11/14/21 03:36 Hgb 13.5 g/dL (12.0-15.0) 11/14/21 03:36 Hct 37.9 % (36.0-45.0) 11/14/21 03:36 Plt Count 406 K/uL (152-406) 11/14/21 03:36 Sodium 130 mmol/L (136-145) L 11/17/21 05:34 Potassium 3.9 mmol/L (3.5-5.1) 11/17/21 05:34 BUN 8 mg/dL (7-18) 11/17/21 05:34 Creatinine 0.40 mg/dL (0.55-1.3) L 11/17/21 05:34 Glucose 88 mg/dL (74-106) 11/17/21 05:34 Phosphorus 2.8 mg/dL (2.5-4.9) 11/15/21 03:20 Magnesium 1.9 mg/dL (1.8-2.4) 11/15/21 03:20 Total Bilirubin 0.8 mg/dL (0.2-1.0) 11/13/21 05:03 AST 36 U/L (15-37) 11/13/21 05:03 ALT 61 U/L (12-78) 11/13/21 05:03 Alkaline Phosphatase 96 U/L (45-117) 11/13/21 05:03 Home Medications: Amlodipine [Norvasc*] 5 mg PO DAILY tab 11/17/21 Ensure Enlive 237 ml PO BID can 11/17/21 Thiamine HCl [Vitamin B-1*] 100 mg PO BID tablet 11/17/21 Diet: AHA Activity: Fall precautions Followup: NONE,NONE [Primary Care Provider] - Time spent managing pt's care (in minutes): 38
[2021-11-18 06:45] VITALS: BP 138/79; TEMP 97.7
== END 2021-11-17 17:15 | DRG 640 ==
LOC: ER 17:31 → ERHOLD 19:30 → 2ND 11-11 12:21
PROVIDERS: ADMIT Hospitalist; ATTEND Hospitalist
PROC: 0T9B70Z Drainage of Bladder with Drainage Device, Via Natural or Artificial Opening (ICD-10-PCS; principal; 2021-11-10)
DX: E87.1 Hypo-osmolality and hyponatremia (principal); G93.41 Metabolic encephalopathy; E46 Unspecified protein-calorie malnutrition; E87.6 Hypokalemia; I10 Essential (primary) hypertension; F17.210 Nicotine dependence, cigarettes, uncomplicated; I95.9 Hypotension, unspecified; F10.20 Alcohol dependence, uncomplicated; Z20.822 Contact with and (suspected) exposure to COVID-19; Z88.3 Allergy status to other anti-infective agents; Z68.24 Body mass index [BMI] 24.0-24.9, adult
CPT/HCPCS: 36415; 51702; 70450; 71045; 80048; 80053; 80069; 80076; 80320; 81003; 81015; 82140; 82550; 83605; 83735; 83880; 83930; 83935; 84132; 84134; 84295; 84300; 84439; 84443; 84484; 85025; 85027; 87040; 87086; 87088; 93005; 96374; 97112; 97116; 97161; 97530; 99285; J0360; J1650; J2405; J3475; J3480; J7030; J7040; U0003